=== PATIENT | male | born 1935 | race Caucasian/White ===

== ENCOUNTER 2016-05-07 11:03 | Observation (INO) ==
[2016-05-07] MEDS ORDERED: IOPAMIDOL 100 ML BOTTLE IV ONE (11:04)
[2016-05-07] MEDS ORDERED: HYDROmorphone 2 MG/ML SYRINGE IV PRN ×2 (11:28→17:43)
[2016-05-07] MEDS ORDERED: 0.9 % SODIUM CHLORIDE 1,000 ML IV ONE (11:28)
[2016-05-07] MEDS ORDERED: ONDANSETRON 4 MG/2 ML VIAL IV ONE (11:28)
--- NOTE | 2016-05-07 11:34 | Emergency Department Note ---
Abdominal Pain HPI - General Chief Complaint: Abdominal Pain Stated Complaint: Abdominal pain Time Seen by Provider: 05/07/16 11:13 Source: patient Mode of arrival: ambulatory Limitations: no limitations - History of Present Illness HPI Narrative: This is an 81-year-old gentleman who comes in today complaining of right-sided abdominal pain. Patient reports that yesterday, after coming home from getting some blood work done at [facility], he began to develop some right-sided abdominal pain. He states that he ate some celery, laid down and the pain lasted from 1 PM to 5:30 PM then resolved. Patient reports that today, after eating bran cereal, the pain returned. He states that it began in the right groin and has now migrated up the right side of the abdomen, continues to be somewhat migratory on the right side. He has difficulty explaining what the pain feels like, he states that he has had some associated nausea with the pain. Reports 8 out of 10 in severity. States he is not passing any gas today. Patient reports that his last normal bowel movement was approximately 2 days ago. Normal for him, no blood. He states he attempted to have a bowel movement today but was unable to. He denies any history of constipation. Denies any abdominal surgeries. Does have a history of left inguinal hernia which was repaired by Dr. Henderson in the last year. He also reports that he has been diagnosed with diverticulosis in 1999, he has never had any issues with this. He denies any urinary symptoms including dysuria, hematuria, frequency or urgency. He states that he feels as though he has a well-balanced diet and takes in adequate fluids. - Related Data Home Medications Medication Instructions Recorded Confirmed Magnesium 250 mg PO DAILY 10/22/14 05/07/16 Vitamin D3 1,000 unit PO DAILY 10/22/14 05/07/16 Calcium Carbonate [Super Calcium] 600 mg PO DAILY 01/05/16 05/07/16 Allergies Allergy/AdvReac Type Severity Reaction Status Date / Time Sulfa (Sulfonamide Allergy Intermediate Rash Verified 04/22/16 09:07 Antibiotics) sulfamethoxazole Allergy Intermediate Rash Verified 04/22/16 09:07 [From ] trimethoprim [From ] Allergy Intermediate Rash Verified 04/22/16 09:07 hydrocodone Allergy Mild Rash Verified 04/22/16 09:07 Review of Systems All systems ED: reviewed and negative except as stated. Abdominal Pain PMH - Past Medical History Medical history: Reports: arthritis, hyperlipidemia, hypertension Surgical history ED: Reports: herniorrhaphy (left inguinal -- Dr Henderson ), knee replacement, other (basal cell carcinoma excision) Physical Exam - General Limitations: no limitations General appearance: alert, in no apparent distress - Head Head exam: atraumatic, normocephalic - Chest Chest inspection: Present: normal inspection, symmetric chest wall rise - Respiratory Respiratory exam: Present: normal lung sounds bilaterally. Absent: respiratory distress, wheezes, stridor, accessory muscle use - Cardiovascular Cardiovascular exam: Present: regular rate, normal rhythm, normal heart sounds - Abdominal Exam Abdominal exam: Present: distention, tenderness, diminished bowel sounds, tenderness at McBurney's Point. Absent: guarding, rebound, rigidity, organomegaly, incision, Tabares's sign, ascites, mass, pulsatile mass, hernia, scar Abdominal tenderness: Present: RUQ, RLQ, epigastrium, moderate - Skin Skin exam: Present: warm, dry Course - Consultations Consultation #1: Consultation with Dr. Henderson, on-call general surgeon. He would like the patient admitted to the floor and he will see the patient once he returns to the hospital. Patient's last oral intake around 0930 today. Vital Signs Temperature 98.3 F 05/07/16 11:03 Pulse Rate 101 H 05/07/16 11:03 Respiratory Rate 17 05/07/16 11:03 Blood Pressure 144/85 05/07/16 11:03 Pulse Oximetry (%) 94 05/07/16 11:03 Temperature 99.2 F 05/07/16 16:00 Pulse Rate 110 H 05/07/16 16:00 Respiratory Rate 24 05/07/16 16:00 Blood Pressure 127/66 05/07/16 16:00 Pulse Oximetry (%) 90 05/07/16 16:00 Abdominal Pain - Lab Data Lab results reviewed: Yes I reviewed the patient's lab results. Result diagrams: 05/07/16 12:00 05/07/16 12:00 Lab Results 05/07/16 05/07/16 05/07/16 Range/Units 12:00 12:00 13:02 WBC 14.3 H (4.5-11.0) K/mcL RBC 5.54 (4.50-5.90) M/mcL Hgb 15.8 (13.5-16.5) g/dL Hct 47.1 (41.0-55.0) % MCV 85.0 (80.0-100.0) fL MCH 28.5 (26.0-34.0) pg MCHC 33.6 (31.0-36.0) g/dL RDW 12.7 (11.5-14.5) % Plt Count 200 (140-440) K/mcL MPV 9.7 (7.4-10.4) fL Gran % 86.5 H (38.0-78.0) % Lymph % (Auto) 5.9 L (15.5-49.0) % [place] % (Auto) 6.9 (1.0-9.0) % Eos % (Auto) 0.3 (0.0-7.0) % Baso % (Auto) 0.4 (0.0-2.0) % Gran # 12.4 H (1.8-8.0) K/mcL Lymph # 0.8 L (1.5-4.8) K/mcL [place] # 1.0 H (0.1-0.9) K/mcL Eos # 0 (0.0-0.7) K/mcL Baso # 0.1 (0.0-0.3) K/mcL Sodium 139 (133-145) mmol/L Potassium 4.0 (3.3-5.1) mmol/L Chloride 96 (96-108) mmol/L Carbon Dioxide 26 (22-30) mmol/L Anion Gap 17.0 H (8-16) BUN 11 (8-23) mg/dl Creatinine 0.8 (0.7-1.2) mg/dl GFR Calculation 84 Glucose 122 H (70-105) mg/dL Calcium 9.5 (8.6-10.4) mg/dl Total Bilirubin 1.1 H (0.0-1.0) mg/dL AST 14 (0-37) U/l ALT 10 (0-40) U/l Alkaline Phosphatase 55 (39-117) U/L Total Protein 7.4 (5.9-8.4) gm/dL Albumin 4.5 (3.2-5.2) gm/dL Globulin 2.9 (2.2-3.7) gm/dL Albumin/Globulin Ratio 1.6 (1.0-2.3) Lipase 42 (7-60) U/L Urine Color Yellow Urine Appearance Clear Urine pH 5.0 (5.0-9.0) Ur Specific [place] 1.014 (1.000-1.035) Urine Protein Neg (NEG) mg/dL Urine Glucose (UA) Negative (NEG) mg/dL Urine Ketones Neg (NEG) mg/dL Urine Occult Blood 0.03 A (<0.03) mg/dL Urine Nitrate Neg (NEG) Urine Bilirubin Neg (NEG) mg/dL Urine Urobilinogen Neg (NEG) mg/dL Ur Leukocyte Esterase Neg (NEG) /uL Urine RBC 3 H (0-1) /hpf Urine WBC 1 (0-4) /hpf Ur Squamous Epith Cells 0 (0-4) /hpf Urine Bacteria 0 (0) /hpf Hyaline Casts 1 (0-2) /lpf Urine Mucus Mod (0) /hpf Ur Culture Indicated? No White count at 14 - Radiology Data Radiology results reviewed: Yes I reviewed the patient's radiology results. Plain radiographs demonstrate gas and fecal material within the colon. No evidence for mechanical bowel obstruction. Abdominal CT obtained due to elevated white cell count which demonstrates acute appendicitis. Disposition Clinical Impression: Appendicitis Disposition: Xfer As Inpt ([facility]) Condition: Undetermined
--- NOTE | 2016-05-07 12:31 | XRay Report ---
CLINICAL INFORMATION: Constipation TECHNIQUE: AP supine abdomen COMPARISON: None. FINDINGS: There is gas and fecal material within the colon. No dilated gas-filled small bowel. No mechanical small bowel obstruction. No pneumatosis. No biliary or portal venous gas. No pathologic calcifications. There is mild thoracolumbar scoliosis. Severe degenerative disease in the right hip. There is marked deformity of the right femoral head IMPRESSION: Negative supine abdomen Interpreted and Authenticated by: Mohsen Zapata 05/07/16
[2016-05-07 12:46] LABS: Basophils # (Auto) 0.1 K/mcL (0.0-0.3); Basophils % (Auto) 0.4 % (0.0-2.0); Eosinophils # (Auto) 0 K/mcL (0.0-0.7); Eosinophils % (Auto) 0.3 % (0.0-7.0); Granulocytes % (Auto) 86.5 % (38.0-78.0); Lymphocytes # (Auto) 0.8 K/mcL (1.5-4.8); Lymphocytes % (Auto) 5.9 % (15.5-49.0); Mean Corpuscular HGB Conc 33.6 g/dL (31.0-36.0); Mean Corpuscular Hemoglobin 28.5 pg (26.0-34.0); Monocytes % (Auto) 6.9 % (1.0-9.0); Platelet Count 200 K/mcL (140-440); RBC 5.54 M/mcL (4.50-5.90); Red Cell Distribution Width 12.7 % (11.5-14.5)
[2016-05-07 13:10] LABS: ALT/SGPT 10 U/l (0-40); Albumin 4.5 gm/dL (3.2-5.2); Albumin/Globulin Ratio 1.6 (1.0-2.3); Alkaline Phosphatase 55 U/L (39-117); Blood Urea Nitrogen 11 mg/dl (8-23); Lipase 42 U/L (7-60)
[2016-05-07 13:40] LABS: Appearance,Urine CLEAR; Bacteria,Urine 0 /hpf (0); Bilirubin,Urine NEG (NEG); Color,Urine YELLOW; Glucose,Urine (UA) NEGATIVE (NEG); Leukocyte Esterase,Urine NEG /uL (NEG); Mucus,Urine MOD /hpf (0); Nitrate,Urine NEG (NEG); Protein,Urine NEG (NEG); Specific Gravity,Urine 1.014 (1.000-1.035); Urine Blood 0.03 mg/dL (<0.03); Urine Hyaline Cast 1 /lpf (0-2); Urine RBC 3 /hpf (0-1); Urine Squamous Epithelial Cell 0 /hpf (0-4); Urine WBC 1 /hpf (0-4); Urobilinogen,Urine NEG (NEG)
[2016-05-07] MEDS ORDERED: ceFAZolin 1 GM VIAL IV ONE (14:46)
[2016-05-07] MEDS: 0.9 % SODIUM CHLORIDE 1,000 ML IV SCH (14:59)
--- NOTE | 2016-05-07 15:23 | Cat Scan Report ---
CLINICAL INFORMATION: Acute right lower quadrant pain COMPARISON: None. TECHNIQUE: Axial images were obtained through the abdomen and pelvis. Sagittally and coronally reformatted images. 80 mL nonionic contrast material injected intravenously. FINDINGS: Appendix measures 17 mm in cross-sectional diameter. There is periappendiceal and pericecal inflammatory change in the right lower quadrant. No free air. No extra appendiceal abscess. No appendicolith. Appearance is consistent with acute appendicitis. No definite CT evidence for significant rupture. There is minimal fluid within the pelvis. Lung bases are negative. No parenchymal mass or infiltrate. No pleural fluid. Negative liver. No focal intrahepatic abnormality. Gallbladder is present. No calcified gallstones. No dilated bile ducts. Pancreas is negative. No pancreatic mass. No peripancreatic abnormality. Spleen is negative. No splenomegaly. Normal enhancement of splenic and portal veins. Negative adrenal glands. Negative kidneys. No hydronephrosis. No solid or cystic renal mass. No diverticulitis. There is sigmoid diverticulosis. No mechanical small bowel obstruction. No pneumoperitoneum. No biliary or portal venous gas. There is calcification of the abdominal aorta. No abdominal aortic aneurysm. No lumbar compression fractures. IMPRESSION: 1. Acute appendicitis. Appendix is enlarged and there is fairly extensive periappendiceal and pericecal inflammatory change 2. Calcification of the abdominal aorta without significant aneurysmal dilatation. Interpreted and Authenticated by: Mohsen Zapata 05/07/16
[2016-05-07] MEDS ORDERED: PROMETHAZINE 25 MG/ML VIAL IV PRN (17:35)
[2016-05-07] MEDS ORDERED: ACETAMINOPHEN 1,000 MG/100 ML BOTTLE IV PRN (17:39)
--- NOTE | 2016-05-07 17:53 | General Surg History&Physical ---
History of Present Illness Patient information: Note initiated : 05/07/16 at 5:51 pm Service Date, if different from initiated Date: [] Patient: Golden Lauren 81 y/o M admitted on 05/07/16 for Abdominal pain. Chief Complaint: [] Chief complaint: abdominal pain HPI: Mr. Drew Lees is a 81 year old male with a 5 day history of right sided abdominal pain. The pain started on Tuesday and has been progressive since onset. All of the pain has been on the right side. He had worsening pain and nausea yesterday . He finally came to the emergen where was noted that he had leukocytosis with white count of 14.[address] evidence of acute appendicitis with a swollen 17 mm appendix with extensive periappendiceal tissue stranding and edema. Patient is admitted and will have appendectomy in the morning. Review of Systems - Constitutional lethargy, weakness, weight gain - EENT Nose, mouth and throat: abnormal hearing, headache(s) - Cardiovascular dyspnea on exertion, pedal edema, no chest pain at rest, no claudication, no rapid heart rate, no syncope - Respiratory dyspnea on exertion, no pain on inspirtation, no chest congestion - Gastrointestinal abdominal pain, cramping, nausea - Genitourinary nocturia, urinary frequency - Musculoskeletal abnormal gait, arthralgias, back pain, deformity, joint swelling, myalgias, stiffness - Integumentary other (multiple skin cancers of limbs extremities and trunk) - Neurological no confusion, no dizziness, no memory loss, no syncope - Psychiatric abnormal sleep pattern, anxiety, depression - Endocrine fatigue, no palpitations - Hematologic/Lymphatic no easy bleeding, no easy bruising, no lymphadenopathy - Allergic/Immunologic no tongue swelling, no throat swelling, no itchy eyes, no uticaria, no wheezing , no lip swelling Past History Past medical history: HYPERTENSION CHRONIC STASIS EDEMA WITH NEGATIVE VENOUS ULTRASOUND Past surgical history: LEFT INGUINAL HERNIA REPAIR rIGHT INGUINAL HERNIA REPAIR rIGHT TOTAL KNEE ARTHROPLASTY lEFT TOTAL KNEE ARTHROPLASTY 2 Past family history: LUNG CANCER bRAIN CANCER mELANOMA HYPERTENSION Past social history: SINGLE nEVER TOBACCO USE nEVER ALCOHOL USE nEVER DRUG USE Medications and Allergies Home Medications Medication Instructions Recorded Confirmed Type Magnesium 250 mg PO DAILY 10/22/14 05/07/16 History Vitamin D3 1,000 unit PO DAILY 10/22/14 05/07/16 History Calcium Carbonate [Super Calcium] 600 mg PO DAILY 01/05/16 05/07/16 History Allergies Allergy/AdvReac Type Severity Reaction Status Date / Time Sulfa (Sulfonamide Allergy Intermediate Rash Verified 04/22/16 09:07 Antibiotics) sulfamethoxazole Allergy Intermediate Rash Verified 04/22/16 09:07 [From ] trimethoprim [From ] Allergy Intermediate Rash Verified 04/22/16 09:07 hydrocodone Allergy Mild Rash Verified 04/22/16 09:07 Exam Temp Pulse Resp BP Pulse Ox 99.2 F 110 H 24 127/66 90 05/07/16 16:00 05/07/16 16:00 05/07/16 16:00 05/07/16 16:00 05/07/16 16:00 - General physical appearance well developed, well nourished, no distress, moderate pain, obese - Eyes PERRL, normal ocular movement - ENT normal pinna, normal nares, normal mucosa, no hearing loss, no congestion - Head Head exam IM: Present: atraumatic, normocephalic - Neck no masses, no bruits, trachea midline, no lymphadectomy, no venous distension - Cardiovascular Cardiovascular exam IM: Present: normal rate and rhythm, RRR, +S1, +S2, systolic murmur. Absent: JVD Intensity IM: 04/09 - Respiratory normal expansion, normal respiratory effort, clear to percussion, clear to auscultation - Abdomen Abdomen: Present: soft, tender (TENDERNESS IN THE RIGHT LOWER QUADRANT WITH GUARDING), bowel sounds Hernia: Present: none - Genitourinary Present: normal penis with no external lesions - Integumentary Present: no rash, no abnormal pigmentation, other (SCATTERED SUPERFICIAL SKIN CANCERS STATUS POST TREATMENT) - Neurologic Present: normal coordination, normal sensation - Musculoskeletal Present: normal posture, other (ABNORMAL GAIT DUE TO EXTRA LENGTH OF HIS LEFT LEG STATUS POST LEFT TOTAL KNEE ARTHROPLASTY WITH REVISION) - Psychiatric Present: oriented to time, oriented to person, oriented to place, speech is normal, memory intact Assessment and Plan (1) Acute appendicitis PATIENT IS STARTED ON ANTIBIOTICS hE WILL BE HYDRATED TONIGHT hE IS COUNSELED FOR LAPAROSCOPIC APPENDECTOMY IN THE MORNING Status: Acute Qualifiers: Acute appendicitis type: with localized peritonitis Qualified Code(s): K35.3 - Acute appendicitis with localized peritonitis (2) Hypertension, essential Status: Chronic (3) Edema, peripheral Status: Chronic
--- NOTE | 2016-05-07 18:06 | XRay Report ---
CLINICAL INFORMATION: Preoperative evaluation. Appendicitis. TECHNIQUE: AP semiupright portable chest x-ray COMPARISON: Previous examination dated 01/05/2016 FINDINGS: Lungs are negative. No parenchymal infiltrate or mass. Heart size and vascularity are normal. No acute abnormality or interval change. IMPRESSION: No acute abnormality Interpreted and Authenticated by: Mohsen Zapata 05/07/16
[2016-05-07] MEDS: PIPERACILLIN SODIUM/TAZOBACTAM 3.375 GM in DEXTROSE 5% IN WATER 50 ML IV SCH (19:41)
[2016-05-07] MEDS ORDERED: PIPERACILLIN SODIUM/TAZOBACTAM 3.375 GM VIAL IV ONE (19:49)
[2016-05-08] MEDS ORDERED: PIPERACILLIN SODIUM/TAZOBACTAM 3.375 GM VIAL IV ONE ×2 (00:22→05:27)
[2016-05-08] MEDS: 0.9 % SODIUM CHLORIDE 10 ML SYRINGE IV SCH ×4 (00:24→23:15)
[2016-05-08] MEDS: PIPERACILLIN SODIUM/TAZOBACTAM 3.375 GM in DEXTROSE 5% IN WATER 50 ML IV SCH ×2 (00:45→05:44)
[2016-05-08] MEDS: 0.9 % SODIUM CHLORIDE 1,000 ML IV SCH ×4 (03:06→23:15)
[2016-05-08 05:58] LABS: Blood Urea Nitrogen 13 mg/dl (8-23)
[2016-05-08 06:25] LABS: Basophils # (Auto) 0 K/mcL (0.0-0.3); Basophils % (Auto) 0.2 % (0.0-2.0); Eosinophils # (Auto) 0 K/mcL (0.0-0.7); Eosinophils % (Auto) 0.2 % (0.0-7.0); Granulocytes % (Auto) 81.9 % (38.0-78.0); Lymphocytes # (Auto) 1.4 K/mcL (1.5-4.8); Lymphocytes % (Auto) 8.3 % (15.5-49.0); Mean Cell Volume 83.6 fL (80.0-100.0); Mean Corpuscular HGB Conc 34.6 g/dL (31.0-36.0); Monocytes # (Auto) 1.5 K/mcL (0.1-0.9); Monocytes % (Auto) 9.4 % (1.0-9.0); Platelet Count 167 K/mcL (140-440); RBC 4.53 M/mcL (4.50-5.90); Red Cell Distribution Width 12.7 % (11.5-14.5)
[2016-05-08 08:55] LABS: Hemoglobin A1C 5.3 % HGB (4.0-6.0)
[2016-05-08] MEDS ORDERED: SUCCINYLCHOLINE 20 MG/ML ML IV ONE (08:55)
[2016-05-08] MEDS ORDERED: PROPOFOL 200 MG/20 ML VIAL IV ONE (08:55)
[2016-05-08] MEDS ORDERED: GLYCOPYRROLATE 0.2 MG/ML VIAL IV ONE (08:55)
[2016-05-08] MEDS ORDERED: fentaNYL 100 MCG/2 ML VIAL IV ONE (08:55)
[2016-05-08] MEDS ORDERED: MIDAZOLAM 2 MG/2 ML VIAL IV ONE (08:55)
[2016-05-08] MEDS ORDERED: ROCURONIUM 10 MG/ML ML IV ONE (08:55)
[2016-05-08] MEDS ORDERED: ONDANSETRON 4 MG/2 ML VIAL IV ONE (08:55)
[2016-05-08] MEDS ORDERED: NEOSTIGMINE 1 MG/ML VIAL IV ONE (08:55)
[2016-05-08] MEDS ORDERED: LIDOCAINE HCL/PF 100 MG/5 ML SYRINGE IV ONE (08:55)
[2016-05-08] MEDS ORDERED: DEXAMETHASONE 10 MG/ML VIAL IV ONE (08:55)
[2016-05-08] MEDS ORDERED: ATROPINE SULFATE 0.4 MG/ML VIAL IV PRN (09:51)
[2016-05-08] MEDS ORDERED: HYDROmorphone 2 MG/ML SYRINGE IV PRN ×2 (09:51→11:09)
[2016-05-08] MEDS ORDERED: FLUMAZENIL 0.1 MG/ML ML IV PRN (09:51)
[2016-05-08] MEDS ORDERED: IPRATROPIUM/ALBUTEROL 3 ML AMPUL.NEB NEB PRN (09:51)
[2016-05-08] MEDS ORDERED: ePHEDrine 50 MG/ML AMPUL IV PRN (09:51)
[2016-05-08] MEDS ORDERED: METOPROLOL TARTRATE 5 MG/5 ML VIAL IV PRN (09:51)
[2016-05-08] MEDS ORDERED: NALOXONE HCL 0.4 MG/ML VIAL IV PRN (09:51)
[2016-05-08] MEDS ORDERED: PROMETHAZINE 25 MG/ML VIAL IV PRN ×2 (09:51→11:09)
[2016-05-08] MEDS ORDERED: BENZOCAINE/MENTHOL 1 LOZENGE PO PRN (09:51)
[2016-05-08] MEDS ORDERED: fentaNYL 100 MCG/2 ML VIAL IV PRN (09:51)
[2016-05-08] MEDS ORDERED: MEPERIDINE 25 MG/ML SYRINGE IV PRN (09:51)
[2016-05-08] MEDS ORDERED: ONDANSETRON 4 MG/2 ML VIAL IV PRN (09:51)
[2016-05-08] MEDS ORDERED: diphenhydrAMINE 50 MG/ML VIAL IV PRN (09:51)
[2016-05-08] MEDS ORDERED: METHOCARBAMOL 1,000 MG/10 ML VIAL IV PRN (09:51)
[2016-05-08] MEDS ORDERED: LACTATED RINGERS 1,000 ML IV SCH (10:00)
--- NOTE | 2016-05-08 10:17 | Brief Operative Note ---
Date of procedure: 05/08/16 Pre-op diagnosis: acute appendicitis Post-op diagnosis: other (acute appendicitis with perforation) Procedure: laparoscopic appendectomy Grafts/Implants: No (bert drain) Anesthesia: GETA Findings: thick,inflamed suppurative appendix with perforation AT THE BASE Complications: none Surgeon: Demetrio Henderson Estimated blood loss (cc): 10 Specimens Removed/Pathology: other (APPENDIX) Condition: stable Disposition: PACU
[2016-05-08] MEDS ORDERED: ACETAMINOPHEN 1,000 MG/100 ML BOTTLE IV PRN (11:09)
[2016-05-08] MEDS: metroNIDAZOLE 500 MG/100 ML BAG IV SCH ×3 (12:05→23:15)
[2016-05-09] MEDS: metroNIDAZOLE 500 MG/100 ML BAG IV SCH ×2 (05:11→13:27)
[2016-05-09] MEDS: 0.9 % SODIUM CHLORIDE 10 ML SYRINGE IV SCH (05:11)
[2016-05-09 06:21] LABS: Basophils # (Auto) 0 K/mcL (0.0-0.3); Basophils % (Auto) 0.2 % (0.0-2.0); Eosinophils # (Auto) 0 K/mcL (0.0-0.7); Eosinophils % (Auto) 0.2 % (0.0-7.0); Granulocytes % (Auto) 85.5 % (38.0-78.0); Lymphocytes # (Auto) 0.9 K/mcL (1.5-4.8); Lymphocytes % (Auto) 7.6 % (15.5-49.0); Mean Cell Volume 84.5 fL (80.0-100.0); Mean Corpuscular HGB Conc 34.2 g/dL (31.0-36.0); Mean Corpuscular Hemoglobin 28.9 pg (26.0-34.0); Monocytes # (Auto) 0.7 K/mcL (0.1-0.9); Monocytes % (Auto) 6.5 % (1.0-9.0); Platelet Count 154 K/mcL (140-440); RBC 4.05 M/mcL (4.50-5.90); Red Cell Distribution Width 12.8 % (11.5-14.5)
[2016-05-09 06:49] LABS: Blood Urea Nitrogen 17 mg/dl (8-23)
[2016-05-09] MEDS: 0.9 % SODIUM CHLORIDE 1,000 ML IV SCH (08:30)
--- NOTE | 2016-05-09 12:46 | General Surgery Progress Note ---
Subjective Patient reports: feels better, pain is less, tolerating a regular diet, flatus, bowel movement, afebrile Narrative: Note initiated : 05/09/16 at 12:44 pm Service Date, if different from initiated Date: [] Patient: Golden Lauren 81 y/o M admitted on 05/07/16 for Abdominal pain. Chief Complaint: [patient is doing well. He hasminimal discomfort. He has had flatus and a bowel movement. He is voiding without difficulty. His incisions are unremarkable except for some drainage around the lower [place] drain. There is no inflammation. He has been afebrileand vital signs are stable. His white count is on the downward trend. Electrolytes are unremarkable. Patient is stab discharge] Objective Temp Pulse Resp BP Pulse Ox 98.7 F 78 18 137/72 94 05/09/16 11:35 05/09/16 11:35 05/09/16 11:35 05/09/16 11:35 05/09/16 11:35 - Additional Data Intake & Output - Last 24 hours: Intake & Output 05/07/16 05/08/16 05/09/16 05/10/16 05:59 05:59 05:59 05:59 Intake Total 1460 / 2460 1720 / 1720 Output Total 475 / 475 1220 / 1220 Balance 985 / 1985 500 / 500 Weight 228 lb 229 lb 8 oz - General physical appearance well nourished, no distress - Eyes PERRL - ENT no congestion - Neck no venous distension - Respiratory clear to auscultation - Cardiovascular Cardiovascular exam: Present: normal rate and rhythm, RRR, +S1, +S2. Absent: JVD - Abdomen soft, non tender, bowel sounds, distended (abdomen is nondistended he has good active bowel sounds. Incisions look good. CHET drainage is serosanguineous) - Integumentary no rash - Neurologic normal coordination, normal sensation - Psychiatric oriented to time, oriented to person, oriented to place, speech is normal, memory intact - Labs 05/09/16 04:38 05/09/16 04:38 Diabetes panel 05/09/16 Range/Units 04:38 Sodium 141 (133-145) mmol/L Potassium 3.9 (3.3-5.1) mmol/L Chloride 104 (96-108) mmol/L Carbon Dioxide 26 (22-30) mmol/L BUN 17 (8-23) mg/dl Creatinine 0.7 (0.7-1.2) mg/dl Glucose 119 H (70-105) mg/dL Calcium 8.5 L (8.6-10.4) mg/dl Calcium panel 05/09/16 Range/Units 04:38 Calcium 8.5 L (8.6-10.4) mg/dl Pituitary panel 05/09/16 Range/Units 04:38 Sodium 141 (133-145) mmol/L Potassium 3.9 (3.3-5.1) mmol/L Chloride 104 (96-108) mmol/L Carbon Dioxide 26 (22-30) mmol/L BUN 17 (8-23) mg/dl Creatinine 0.7 (0.7-1.2) mg/dl Glucose 119 H (70-105) mg/dL Calcium 8.5 L (8.6-10.4) mg/dl Adrenal panel 05/09/16 Range/Units 04:38 Sodium 141 (133-145) mmol/L Potassium 3.9 (3.3-5.1) mmol/L Chloride 104 (96-108) mmol/L Carbon Dioxide 26 (22-30) mmol/L BUN 17 (8-23) mg/dl Creatinine 0.7 (0.7-1.2) mg/dl Glucose 119 H (70-105) mg/dL Calcium 8.5 L (8.6-10.4) mg/dl Medical - PN: A/P - Time Spent With Patient Total time spent is greater than 50% in coordination of care (as documented) at patient's floor/unit and/or counseling patient: (1) Acute appendicitis Status: Acute Assessment and plan: patient is stable and ready for discharge. He states that he does not need medication for pain He will be seen in the office in 2 weeks. Current Visit: Yes (2) Hypertension, essential Status: Chronic Current Visit: No (3) Edema, peripheral Status: Chronic Current Visit: Yes
--- NOTE | 2016-05-09 12:52 | Discharge Summary ---
Providers - Providers Patient information: Note initiated : 05/09/16 at 12:50 pm Service Date, if different from initiated Date: [] Patient: Golden Lauren 81 y/o M admitted on 05/07/16 for Abdominal pain. Chief Complaint: [] Date of admission: 05/07/16 Discharge date: 05/09/16 Attending physician: Demetrio Henderson Hospitalization Hospital course: 81-year-old male with a 2 day history of right-sided abdomnal pain that became increasingly severe. He had fever and possibly chills. He presented to the emergency room with leukocytosis and right lower quadrant pain. CT of the abdomen revealed a 17 mm appendix with periappendiceal edema and inflammation. On yesterday he underwent laparoscopic appendectomy. He had an early perforation at the base. The surgeryproceeded uneventfully. He has a CHET drain that is putting out serosanguineous fluid. We will leave this in until he returns to the office. He is otherwise stable and is ready for discharge. Discharge diagnosis: acute appendicitis Reason for admission: acute abdominal pain Procedures: laparoscopic appendectomy Pertinent studies/significant findings: CT of abdomen and pelvis Complications: none Exam Temp Pulse Resp BP Pulse Ox 98.7 F 78 18 137/72 94 05/09/16 11:35 05/09/16 11:35 05/09/16 11:35 05/09/16 11:35 05/09/16 11:35 - General physical appearance no distress, no pain - Eyes PERRL - ENT no congestion - Head Head exam IM: Present: atraumatic, normocephalic - Neck no venous distension - Cardiovascular Cardiovascular exam IM: Present: normal rate and rhythm, RRR, +S1, +S2. Absent : JVD - Respiratory normal expansion, clear to auscultation - Abdomen Abdomen: Present: soft, non tender, bowel sounds (ood active bowel sounds; incision is healinguneventfully) - Integumentary Present: no rash, no growths, no abnormal pigmentation - Musculoskeletal Present: other (altered gait due to discrepancy in length and legs) - Psychiatric Present: oriented to time, oriented to person, oriented to place, speech is normal, memory intact Discharge Plan - Patient/Caregiver Discharge Instructions Activity: increase activity as tolerated Diet: Regular Diet Prescriptions: Levofloxacin [Levaquin] 500 mg PO DAILY #7 tablet - Follow up Plan Follow up with: Bong Live MD [Primary Care Provider] - Disposition: Home, Self-Care Prognosis: Good Rehab Potential: Good (he) I certify that the patient requires SNF services.: No (this) Overall status at discharge: patient is progressing back to baseline Pending Studies Resuscitation Status Full Code Diet Regular Diet Start Sat May 08 Dinner Hydromorphone HCl (Dilaudid) 1 mg IV Q4HP PRN PRN Reason: Pain Last Admin: 05/08/16 20:59 Dose: 1 mg Sodium Chloride (Sodium Chloride 0.9%) 1,000 mls @ 100 mls/hr IV .Q10H KELLEE Last Admin: 05/09/16 08:30 Dose: Not Given Admin: 05/08/16 23:15 Dose: 100 mls/hr Admin: 05/08/16 13:45 Dose: Not Given Acetaminophen (Ofirmev) 1,000 mg in 100 mls @ 200 mls/hr IV Q6HP PRN PRN Reason: Pain Last Admin: 05/08/16 21:07 Dose: 200 mls/hr Metronidazole (Flagyl) 500 mg in 100 mls @ 100 mls/hr IV Q6H KELLEE Last Admin: 05/09/16 05:11 Dose: 100 mls/hr Infusion: 05/09/16 00:15 Dose: 100 mls/hr Admin: 05/08/16 23:15 Dose: 100 mls/hr Infusion: 05/08/16 19:07 Dose: 100 mls/hr Admin: 05/08/16 18:07 Dose: 100 mls/hr Infusion: 05/08/16 13:05 Dose: 100 mls/hr Admin: 05/08/16 12:05 Dose: 100 mls/hr Sodium Chloride (Saline Flush) 10 ml IV Q8 KELLEE Last Admin: 05/09/16 05:11 Dose: 10 ml Admin: 05/08/16 23:15 Dose: Not Given Admin: 05/08/16 13:46 Dose: 10 ml Shift Summary 05/09/16 04:39 Shift Summary by Eric Martin Patient has rested on & off this noc. He has had minimal pain, and no nausea again this noc - Dilaudid 1mg & Ofrimev IV given @ 2100 - excellent pain relief. IV NS infusing @ 100ml/hr to his RT F/A, and has an additional saline lock to his LT F/A.. He has a Hx multiple knee surgeries, as well as arthritis - chronic Rt knee pain. He has 2x ABD lap sites, and a CHET site with eugene to his lower mid ABD - CHET draining serosang fluid - 15ml out. He is calm & pleasant, and has been up AMB in [place] with his 4 wheel walker last cong. Initialized on 05/09/16 04:39 - END OF NOTE
--- NOTE | 2016-05-10 09:28 | Operative Note ---
DATE OF OPERATION: 05/08/2016 PREOPERATIVE DIAGNOSIS: Acute appendicitis. POSTOPERATIVE DIAGNOSIS: Acute suppurative appendicitis with perforation. PROCEDURE: Laparoscopic appendectomy. SURGEON: Demetrio Henderson MD. FINDINGS: Thick, inflamed suppurative appendix with perforation at the base. DESCRIPTION OF PROCEDURE: Under general anesthesia, the patient's abdomen was prepped and draped in the sterile field. A timeout procedure was carried out as per protocol. A supraumbilical incision was made and Veress needle was inserted uneventfully. Abdomen was insufflated with 2.5 L of CO2. A 12 mm port was placed uneventfully. Laparoscope was placed. There was acute, moderately severe inflammation in the right lateral gutter. There was also a small amount of fluid in the pelvis. Under videoscopic guidance, a 5 mm port was placed in the suprapubic midline and a 12 mm port in the left lower quadrant. Grasper was placed. The patient was placed in Trendelenburg position and rotated to the left. At the base of the cecum, the acutely inflamed appendix was found. There was oozing of purulence from the base of the appendix compatible with a perforation. This occurred before the appendix was touched. There was a moderate amount of free fluid around the appendix. The base of the cecum was bluntly dissected and mobilized. The appendix was grasped by the mesoappendix and bluntly dissected away from the cecum. Once the base was identified, blunt dissection was carried out until the base was clearly identified. There was enough free appendix below the perforation to place a stapler. Endo stapler was placed and fired, transecting the appendix at the base. It also transected the mesoappendix. The appendix was placed in an Endopouch and retrieved. Irrigating fluid was carried out for a total of 2 L to irrigate the right gutter and the pelvis. CHET drain was placed and positioned at the base of the cecum but not directly on the staple line. This drain was brought out through the suprapubic midline incision. CO2 was allowed to escape from the abdomen, and the ports were removed. Fascia at the umbilicus was closed with 0 Vicryl. Skin was closed with eugene. Drain was secured with 2-0 nylon. The patient tolerated the procedure well. Dressings were placed. He was awakened from anesthesia uneventfully, transferred to a bed and taken to the postanesthetic care unit in stable, satisfactory condition. LCS:[email or web address] Job ID: [id number] Doc ID: [id number] Demetrio Henderson M.D.
--- NOTE | 2016-05-11 15:27 | Surgical Pathology Report ---
HISTOLOGY SPECIMEN MICROSCOPIC DIAGNOSIS APPENDIX, APPENDECTOMY: -- ACUTE SUPPURATIVE APPENDICITIS WITH PERFORATION AND ASSOCIATED FIBRINOPURULENT SEROSITIS. ([facility]:elvia) PROCEDURAL IMPRESSION Acute appendicitis. GROSS DESCRIPTION Received in formalin labeled appendix, is a 6.0 cm long by up to 1.4 cm in diameter purple-moody appendix with up to 2.3 cm of attached yellow-nuno adipose tissue. There are multiple areas of thick yellow-nuno possible exudate on the surface. The margin is clipped. The lumen contains soft dark brown material. No gross perforations are identified. Script Reader sections submitted - two cassettes. (SMT:elvia) Electronically Signed by: Keely Roberts D.O.
== END 2016-05-09 15:55 | disposition home or self-care (01) ==
LOC: ED 11:03 → MEDSUR 11:03
PROVIDERS: ADMIT Family Medicine Adult Medicine; ATTEND Family Medicine Adult Medicine
PROC: LAPAPPY (ICD-10-PCS; 2016-05-08 09:19)